=== PATIENT | female | born 1975 | race Caucasian/White ===

== ENCOUNTER 2020-07-29 16:49 | Emergency (ER) | payer MEDICAID ==
[~2020-07-29] VITALS: Ht 160 cm; Wt 75.1 kg
[2020-07-29 17:17] VITALS: BP 178/93
[2020-07-29] MEDS ORDERED: ORPH100T2 PO (17:42)
[2020-07-29] MEDS ORDERED: ONDA8TAB6 PO (17:42)
[2020-07-29] MEDS ORDERED: HYDR-4353 PO (17:42)
== END 2020-07-29 18:09 | disposition home or self-care (01) ==
LOC: ER 16:50
DX: S39.012A Strain of muscle, fascia and tendon of lower back, initial encounter (principal); S09.90XA Unspecified injury of head, initial encounter; I10 Essential (primary) hypertension; W01.0XXA Fall on same level from slipping, tripping and stumbling without subsequent striking against object, initial encounter; Y93.E1 Activity, personal bathing and showering; Y92.091 Bathroom in other non-institutional residence as the place of occurrence of the external cause; Y99.9 Unspecified external cause status
CPT/HCPCS: 99283